=== PATIENT | male | born 1985 | race Two or more races ===

== ENCOUNTER 2020-02-11 12:35 | Emergency (ER) | payer MEDICAID ==
[~2020-02-11] VITALS: Ht 175.3 cm; Wt 80.3 kg
--- NOTE | 2020-02-11 12:40 | NUR ---
GOVIND RA 876 From Home laceration "was carrying glass table - it broke", to ER bed 10, hooked to bp monitor and pox, changed to hosp gown, warm blanket provided, patient aao x 4, breathing even and unlabored, awaiting MD smith.
--- NOTE | 2020-02-11 13:04 | NUR ---
Lori lam in [facility] - 02/11/20 at 1521 by SHARON DEPARTMENT DIRECTOR AT BEDSIDE FOR WOUND CLEANING
[2020-02-11] MEDS ORDERED: LIDOCAINE 1% INJ 50 ML MDV IJ ONE (13:10)
--- NOTE | 2020-02-11 14:12 | NUR ---
DR SALEH AT BEDSIDE FOR EVAL
[2020-02-11] MEDS ORDERED: BACI/NEOM/POLY B OINT PKT 1 UDPKT PACKET TP ONE (14:30)
[2020-02-11] MEDS ORDERED: TDAP [DIPH/PERTUSSIS/TET] 0.5 ML VIAL IM ONE ×2 (14:30→14:37)
[2020-02-11] MEDS ORDERED: HYDROCODONE/APAP 5/325MG 1 EACH TABLET PO ONE (14:30)
[2020-02-11] MEDS ORDERED: BACI/NEOM/POLY B OINT PKT 1 UDPKT PACKET ONE (14:36)
[2020-02-11] MEDS ORDERED: HYDROCODONE/APAP 5/325MG 1 EACH TABLET ONE (14:37)
--- NOTE | 2020-02-11 15:11 | NUR ---
ACCOUNTING TEACHER AT BEDSIDE FOR CLEANING OF LLE LACERATIONS
--- NOTE | 2020-02-11 16:08 | NUR ---
DR SLAEH AT BEDSIDE FOR SUTURING
--- NOTE | 2020-02-11 17:01 | NUR ---
TECH AT BEDSIDE FOR WOUND CARE
--- NOTE | 2020-02-11 17:26 | NUR ---
Patient discharged to home in stable condition. Written and verbal after care instructions given. Patient verbalizes understanding of instruction.
[2020-02-11 17:27] VITALS: BP 114/64
== END 2020-02-11 17:27 | disposition home or self-care (01) ==
LOC: ER 12:45
DX: S96.822A Laceration of other specified muscles and tendons at ankle and foot level, left foot, initial encounter (principal); S81.011A Laceration without foreign body, right knee, initial encounter; S81.812A Laceration without foreign body, left lower leg, initial encounter; S91.311A Laceration without foreign body, right foot, initial encounter; W25.XXXA Contact with sharp glass, initial encounter; Y93.89 Activity, other specified; Y92.89 Other specified places as the place of occurrence of the external cause; Y99.8 Other external cause status
CPT/HCPCS: 12005; 90471; 90715; 99283; A6403 ×2; J3490

== ENCOUNTER 2020-02-13 10:33 | Emergency (ER) | payer MEDICAID ==
[~2020-02-13] VITALS: Ht 177.8 cm; Wt 81.6 kg
[2020-02-13 10:42] VITALS: BP 112/85
--- NOTE | 2020-02-13 11:38 | NUR ---
Patient discharged to home in stable condition. Written and verbal after care instructions given. Patient verbalizes understanding of instruction. Pt ambulatory with a steady gait
== END 2020-02-13 11:39 | disposition home or self-care (01) ==
LOC: ER 10:39
DX: S81.811D Laceration without foreign body, right lower leg, subsequent encounter (principal); Z60.2 Problems related to living alone; X58.XXXD Exposure to other specified factors, subsequent encounter

== ENCOUNTER 2020-02-14 15:05 | Emergency (ER) | payer MEDICAID ==
[~2020-02-14] VITALS: Ht 177.8 cm; Wt 81.6 kg
[2020-02-14 15:10] VITALS: BP 118/71
--- NOTE | 2020-02-14 16:01 | NUR ---
AT BEDSIDE FOR EVAL.
--- NOTE | 2020-02-14 16:10 | NUR ---
HOME ENERGY RATER AT BEDSIDE FOR XRAY.
--- NOTE | 2020-02-14 16:51 | NUR ---
WOUND DRESSING DONE BY RECORDS ASSISTANT.
--- NOTE | 2020-02-14 17:03 | NUR ---
Patient discharged to home in stable condition. Written and verbal after care instructions given. Patient verbalizes understanding of instruction.
== END 2020-02-14 17:04 | disposition home or self-care (01) ==
LOC: ER 15:07
DX: S81.811D Laceration without foreign body, right lower leg, subsequent encounter (principal); Z60.2 Problems related to living alone; W22.8XXD Striking against or struck by other objects, subsequent encounter
CPT/HCPCS: 73590-TC; 73630-TC

== ENCOUNTER 2020-02-21 12:16 | Emergency (ER) | payer MEDICAID ==
[~2020-02-21] VITALS: Ht 177.8 cm; Wt 81.6 kg
[2020-02-21 12:23] VITALS: BP 129/66
--- NOTE | 2020-02-21 13:47 | NUR ---
Patient discharged to home in stable condition. Written and verbal after care instructions given. Patient verbalizes understanding of instruction. Pt ambulatory with a steady gait
== END 2020-02-21 13:48 | disposition home or self-care (01) ==
LOC: ER 12:21
DX: S81.811D Laceration without foreign body, right lower leg, subsequent encounter (principal); L03.115 Cellulitis of right lower limb; Z60.2 Problems related to living alone; X58.XXXD Exposure to other specified factors, subsequent encounter